=== PATIENT | female | born 1980 | race African-American/Black ===

== ENCOUNTER 2017-06-06 22:33 | Emergency (ER) | payer MEDICAID ==
[~2017-06-06] VITALS: Ht 167.6 cm; Wt 123.0 kg
[2017-06-07 01:25] VITALS: BP 135/85
== END 2017-06-07 04:45 | disposition home or self-care (01) ==
LOC: ER 06-07 04:38
DX: M54.5 Low back pain (principal); M25.572 Pain in left ankle and joints of left foot; M79.662 Pain in left lower leg; Z88.6 Allergy status to analgesic agent; Z90.49 Acquired absence of other specified parts of digestive tract
CPT/HCPCS: 99283

== ENCOUNTER 2018-06-06 14:02 | Emergency (ER) | payer OTHER, MEDICAID ==
[~2018-06-06] VITALS: Ht 167.6 cm; Wt 131.0 kg
[2018-06-06 18:34] VITALS: BP 148/60
== END 2018-06-06 18:30 | disposition home or self-care (01) ==
LOC: ER 14:02
DX: R51 Headache (principal); M54.12 Radiculopathy, cervical region; Z90.49 Acquired absence of other specified parts of digestive tract; Z98.890 Other specified postprocedural states; Z88.6 Allergy status to analgesic agent
CPT/HCPCS: 99284

== ENCOUNTER 2018-08-08 20:05 | Emergency (ER) | payer MEDICAID, OTHER ==
[~2018-08-08] VITALS: Ht 167.6 cm; Wt 102.1 kg
[2018-08-09] MEDS ORDERED: SUMATRIPTAN SUCCINATE 25MG TABLET PO ONE (00:30)
[2018-08-09 01:57] VITALS: BP 141/78
== END 2018-08-09 01:57 | disposition home or self-care (01) ==
LOC: ER 20:05
DX: R20.2 Paresthesia of skin (principal); R51 Headache; R03.0 Elevated blood-pressure reading, without diagnosis of hypertension; Z90.49 Acquired absence of other specified parts of digestive tract; Z88.6 Allergy status to analgesic agent
CPT/HCPCS: 81025; 99284